=== PATIENT | female | born 1970 | race Caucasian/White ===

== ENCOUNTER 2017-08-04 20:44 | Emergency (ER) | payer BC ==
[~2017-08-04] VITALS: Ht 162.6 cm; Wt 84.0 kg
[~2017-08-04 20:44] MED LIST: ALBU0.5N2 NEB; ALBUAER2 INH; ASPI1TAB83 PO; CETI10TA84 PO; LNX125 PO; MEDR150I INJ; METO25TA3 PO; PANT1TAB48 PO; TPRSR25 PO
[2017-08-04 20:46] VITALS: TEMP 37
[2017-08-04] MEDS ORDERED: SODIUM CHLORIDE 0.9% 1000ML 1,000 ML IV STA ×2 (20:53→20:57)
[2017-08-04 20:56] VITALS: Ht 162.6 cm; Wt 84.0 kg
--- NOTE | 2017-08-04 21:21 | DIAGNOSTIC IMAGING REPORT ---
CHEST ONE VIEW PORTABLE HISTORY: 46 years-old Female EVALUATE WEAKNESS acute weakness with tachycardia COMPARISON: Chest radiograph 01/02/2016 TECHNIQUE: Portable upright AP view of the chest FINDINGS: Cardiomediastinal and hilar silhouettes are within normal limits. No pneumothorax, pleural effusion or focal airspace consolidation. No overt pulmonary edema. The bones are grossly intact. IMPRESSION: No acute cardiopulmonary process. The above report was generated using voice recognition software. It may contain grammatical, syntax or spelling errors. Electronically signed by: Ten Parmar M.D. 08/04/2017 9:20 PM Dictated Date/Time: 08/04/2017 9:19 PM
[2017-08-04 21:32] LABS: INR 0.9 (0.9-1.1); PARTIAL THROMBOPLASTIN RATIO 1.2; PROTHROMBIN TIME (PATIENT) 10.1 SECONDS (9.0-12.0)
--- NOTE | 2017-08-04 21:32 | EMERGENCY ROOM VISIT NOTE ---
History Report prepared by Zeny: Ino Madrid Under the Supervision of: Dr. Olvin aGrza M.D. First contact with patient: 20:52 Chief Complaint: TACHYCARDIA Stated Complaint: TACHYCARDIA FOR 2 HOURS History of Present Illness The patient is a 46 year old female who presents to the Emergency Room with complaints of constant tachycardia for two hours. The patient states that she has been very dehydrated the past two days, and she states she has a history of SVT. She states that she has these episodes when she gets dehydrated. She was last here in December of 2015 for SVT due to being dehydrated, and afterwards she was scheduled for an ablation, and she has been drinking more water than before. She states that she has been light headed with this tachycardia. Pt denies LOC, headache, fevers, chills, diaphoresis, visual changes, neck pain, chest pain, breathing difficulties, nausea, vomiting, abdominal pain, back pain , leg swelling, melena, hematochezia, urinary symptoms, numbness, weakness, lymphadenopathy, rash, or other complaints. Source of History: patient Onset: two hours ago Position: other (heart) Quality: other (tachycardic) Timing: constant Note: Associated symptoms: Dizziness Review of Systems See HPI for pertinent positives and negatives. A total of ten systems were reviewed and were otherwise negative. Past Medical & Surgical Medical Problems: (1) Asthma (2) H/O migraine (3) H/o palpitations (4) H/o PVC's (5) Respiratory failure, acute (6) Tobacco use disorder Surgical Problems: (1) H/O arthroscopic knee surgery (2) H/O arthroscopy of shoulder (3) H/o EGD (4) History of dental surgery (5) S/P Family History Cardiac disorder FATHER Diabetes mellitus PGM AUNT FH: CAD (coronary artery disease) PGF PGM FH: breast cancer PATERNAL AUNT (age late 50s) FH: colon cancer UNCLE (age 65) Hypertension BROTHER HALF BROTHER Social History Smoking Status: Current Every Day Smoker Alcohol Use: occasionally Drug Use: none Marital Status: Housing Status: lives with family Current/Historical Medications Scheduled Aspirin (Aspirin), 81 MG PO QAM Cetirizine (Zyrtec), 10 MG PO QAM Cyanocobalamin (Cyanocobalamin), 1,000 MCG IM MONTHLY Digoxin (Digitek), 0.0625 MG PO QAM Medroxyprogesterone Acetate (C (Medroxyprogesterone Aceta), 150 MG IM Q3 MONTHS Metoprolol Succinate (Metoprolol Succinate ER), 12.5 MG PO QAM Pantoprazole (Pantoprazole Sodium), 40 MG PO QAM Scheduled PRN Albuterol (Ventolin Hfa), 2 PUFFS INH QID PRN for SOB/Wheezing Lorazepam (Lorazepam), 0.5 MG PO Q8 PRN for Palpitations or Anxiety Allergies Coded Allergies: Bupropion (Verified Allergy, Unknown, HIVES, 01/02/16) Iodine (Verified Allergy, Unknown, 01/02/16) Phentermine (Verified Allergy, Unknown, 01/02/16) Scallop (Unverified Allergy, Unknown, NO BLOOD PRESSURE/VOMITING, 01/02/16) NEAR EXPERIENCE. Clarithromycin (Verified Adverse Reaction, Unknown, HEADACHE, 11/13/15) Physical Exam Vital Signs Date Time Temp Pulse Resp B/P (MAP) Pulse Ox O2 Delivery O2 Flow Rate FiO2 08/04/17 23:13 81 16 100/66 95 Room Air 08/04/17 22:13 96 20 86/60 95 Room Air 08/04/17 21:33 95 Room Air 08/04/17 21:32 96 Room Air 08/04/17 21:27 100 18 93/65 96 Room Air 08/04/17 20:57 110 08/04/17 20:53 168 08/04/17 20:48 98 Room Air 08/04/17 20:46 37.0 173 18 99/58 96 Room Air Physical Exam GENERAL: Awake, alert, well-appearing, in no distress HENT: Normocephalic, atraumatic. Oropharynx unremarkable. EYES: Normal conjunctiva. Sclera non-icteric. NECK: Supple. No nuchal rigidity. FROM. No JVD. RESPIRATORY: Clear to auscultation. CARDIAC:Tachycardic rate, normal rhythm. Extremities warm and well perfused. Pulses equal. ABDOMEN: Soft, non-distended. No tenderness to palpation. No rebound or guarding. No masses. RECTAL: Deferred. MUSCULOSKELETAL: Chest examination reveals no tenderness. The back is symmetrical on inspection without obvious abnormality. There is no CVA tenderness to palpation. No joint edema. LOWER EXTREMITIES: Calves are equal size bilaterally and non-tender. No edema. No discoloration. NEURO: Normal sensorium. No sensory or motor deficits noted. SKIN: No rash or jaundice noted. Medical Decision & Procedures ER Provider Diagnostic Interpretation: Radiology results as stated below per my review and radiologist interpretation: CHEST ONE VIEW PORTABLE HISTORY: 46 years-old Female EVALUATE WEAKNESS acute weakness with tachycardia COMPARISON: Chest radiograph 01/02/2016 TECHNIQUE: Portable upright AP view of the chest FINDINGS: Cardiomediastinal and hilar silhouettes are within normal limits. No pneumothorax, pleural effusion or focal airspace consolidation. No overt pulmonary edema. The bones are grossly intact. IMPRESSION: No acute cardiopulmonary process. The above report was generated using voice recognition software. It may contain grammatical, syntax or spelling errors. Electronically signed by: Ten Parmar M.D. 08/04/2017 9:20 PM Dictated Date/Time: 08/04/2017 9:19 PM Laboratory Results 08/04/17 21:00 Red Blood Count 5.27, Mean Corpuscular Volume 89.4, Mean Corpuscular Hemoglobin 32.4, Mean Corpuscular Hemoglobin Concent 36.3, Mean Platelet Volume 11.3, Neutrophils (%) (Auto) 52.4, Lymphocytes (%) (Auto) 40.3, Monocytes (%) (Auto) 5.4, Eosinophils (%) (Auto) 1.3, Basophils (%) (Auto) 0.4, Neutrophils # (Auto) 5.92, Lymphocytes # (Auto) 4.56, Monocytes # (Auto) 0.61, Eosinophils # (Auto) 0.15, Basophils # (Auto) 0.05 08/04/17 21:00 Test 08/04/17 21:00 08/04/17 22:00 White Blood Count 11.31 K/uL (4.8-10.8) Red Blood Count 5.27 M/uL (4.2-5.4) Hemoglobin 17.1 g/dL (12.0-16.0) Hematocrit 47.1 % (37-47) Mean Corpuscular Volume 89.4 fL (80-100) Mean Corpuscular Hemoglobin 32.4 pg (25-34) Mean Corpuscular Hemoglobin Concent 36.3 g/dl (32-36) Platelet Count 204 K/uL (130-400) Mean Platelet Volume 11.3 fL (7.4-10.4) Neutrophils (%) (Auto) 52.4 % Lymphocytes (%) (Auto) 40.3 % Monocytes (%) (Auto) 5.4 % Eosinophils (%) (Auto) 1.3 % Basophils (%) (Auto) 0.4 % Neutrophils # (Auto) 5.92 K/uL (1.4-6.5) Lymphocytes # (Auto) 4.56 K/uL (1.2-3.4) Monocytes # (Auto) 0.61 K/uL (0.11-0.59) Eosinophils # (Auto) 0.15 K/uL (0-0.5) Basophils # (Auto) 0.05 K/uL (0-0.2) RDW Standard Deviation 46.4 fL (36.4-46.3) RDW Coefficient of Variation 14.1 % (11.5-14.5) Immature Granulocyte % (Auto) 0.2 % Immature Granulocyte # (Auto) 0.02 K/uL (0.00-0.02) Prothrombin Time 10.1 SECONDS (9.0-12.0) Prothromb Time International Ratio 0.9 (0.9-1.1) Activated Partial Thromboplast Time 30.1 SECONDS (21.0-31.0) Partial Thromboplastin Ratio 1.2 Anion Gap 9.0 mmol/L (3-11) Est Creatinine Clear Calc Drug Dose 82.0 ml/min Estimated GFR () 89.5 Estimated GFR (Non- 77.2 BUN/Creatinine Ratio 7.9 (10-20) Calcium Level 8.3 mg/dl (8.5-10.1) Magnesium Level 2.0 mg/dl (1.8-2.4) Total Bilirubin 0.3 mg/dl (0.2-1) Direct Bilirubin < 0.1 mg/dl (0-0.2) Aspartate Amino Transf (AST/SGOT) 22 U/L (15-37) Alanine Aminotransferase (ALT/SGPT) 26 U/L (12-78) Alkaline Phosphatase 68 U/L (45-117) Total Creatine Kinase 114 U/L (26-192) Creatine Kinase MB 0.9 ng/ml (0.5-3.6) Creatine Kinase MB Ratio 0.8 (0-3.0) Troponin I < 0.015 ng/ml (0-0.045) Total Protein 7.5 gm/dl (6.4-8.2) Albumin 3.7 gm/dl (3.4-5.0) Thyroid Stimulating Hormone (TSH) 8.930 uIu/ml (0.300-4.500) Human Chorionic Gonadotropin, Qual NEG (NEG) Urine Color YELLOW Urine Appearance CLEAR (CLEAR) Urine pH 5.5 (4.5-7.5) Urine Specific [place] 1.010 (1.000-1.030) Urine Protein NEG (NEG) Urine Glucose (UA) NEG (NEG) Urine Ketones NEG (NEG) Urine Occult Blood 1+ (NEG) Urine Nitrite NEG (NEG) Urine Bilirubin NEG (NEG) Urine Urobilinogen NEG (NEG) Urine Leukocyte Esterase NEG (NEG) Urine WBC (Auto) /hpf (0-5) Urine RBC (Auto) /hpf (0-4) Urine Hyaline Casts (Auto) /lpf (0-5) Urine Epithelial Cells (Auto) /lpf (0-5) Urine Bacteria (Auto) (NEG) Urine RBC 5-10 /hpf (0-4) Urine WBC 0 /hpf (0-5) Urine Epithelial Cells 10-20 /lpf (0-5) Urine Bacteria NEG (NEG) Laboratory results reviewed by me Medications Administered Medications (Trade) Dose Ordered Sig/Sean Route Start Time Stop Time Status Last Admin Dose Admin Sodium Chloride 1,000 ml @ 125 mls/hr Q8H STAT IV 08/04/17 20:53 08/05/17 00:21 DC 08/04/17 20:53 125 MLS/HR Sodium Chloride 1,000 ml @ 999 mls/hr Q1H1M STAT IV 08/04/17 20:57 08/04/17 21:57 DC 08/04/17 21:09 999 MLS/HR ECG Indication: tachycardia Rate (beats per minute): 167 Rhythm: SVT Findings: nonspecific-ST abn, RBBB (incomplete), other (Premature Supraventricular Contractions) Change: Repeat EKG after the change in rhythm: Tachycardia at 105. Non-specific ST abnormalities and PVC ED Course 2051: The patient was evaluated in room B1. A complete history and physical exam was performed. 2052: Sodium Chloride 1000 ml @ 125 mls/hr IV 2056: Sodium Chloride 1000 ml @ 999 mls/hr IV 2321: I reevaluated the patient, and she is feeling well, and she is going to follow up with cardiology. Discussed results and discharge instructions: She verbalized understanding and agreement. The patient is ready for discharge. Medical Decision Triage Nursing notes reviewed. The patient's presentation and history were concerning for palpitations. Etiologies such as ectopy, cardiac dysrhythmia, electrolyte abnormality, thyroid dysfunction, pulmonary embolism, infection, gastrointestinal, as well as others were entertained. The patient was evaluated. She was found to be in a super ventricular tachycardia. She was taken emergently to the resuscitation room. Cardiac monitoring and ECG revealed a supraventricular tachycardia. She has a history of this. An IV was established. The patient then felt fluttering in her chest and the SVT broke to sinus rhythm. She felt much better. Blood work was obtained. Electrolytes were checked. She was hydrated with 1 L normal saline. The patient's blood work was unremarkable. Potassium is 1/10 of a point low. I discussed medications or increasing the potassium patient's diet and she chose the latter. On monitor she had no recurrence of her SVT. She never had any significant chest pain or ischemic ECG changes. She has had this happen to her before. I discussed conservative management. The patient will follow-up with her kier operator this week. I gave my usual and customary discussion regarding this issue. By the evaluation outlined above other emergent etiologies such as those listed in the differential, as well as others, were deemed relatively unlikely. The patient was educated about the findings as listed above. All questions were answered and the patient was pleased with the treatment. Return instructions were outlined and the patient was discharged in stable condition. The patient was referred to cardiology for follow-up for a recheck of the current condition. Medication Reconcilliation Current Medication List: was personally reviewed by me Blood Pressure Screening Patient's blood pressure: Low blood pressure Referred to kier operator Impression Primary Impression: SVT (supraventricular tachycardia) Scribe Attestation The scribe's documentation has been prepared under my direction and personally reviewed by me in its entirety. I confirm that the note above accurately reflects all work, treatment, procedures, and medical decision making performed by me. Departure Information Dispostion Home / Self-Care Referrals Olvin Cochran III, M.D. (PCP) Forms HOME CARE DOCUMENTATION FORM, IMPORTANT VISIT INFORMATION, WORK / SCHOOL INSTRUCTIONS Patient Instructions My [facility], Understanding Supraventricular Tachycardia SVT Additional Instructions Rest and drink plenty of fluids as tolerated. Continue current medications. Resume normal activities once your symptoms resolve. Eat a heart healthy, low fat, low cholesterol diet. Return to the ER immediately for passing out, chest pain, abdominal pain, vomiting, fevers, difficulty breathing, worsening of your condition, or as needed. Follow up with kier operator this week for a recheck of your current condition.
[2017-08-04 21:33] VITALS: O2SAT 95
[2017-08-04 21:45] LABS: PREG INTERNAL NEGATIVE QC NEG CLEAR BACKGROUND; PREG INTERNAL POSITIVE QC POS CONTROL LINE
[2017-08-04 21:51] LABS: BASO % 0.4 %; BASO ABS # 0.05 K/uL (0-0.2); COMPLETE YES; EOS % 1.3 %; HEMATOCRIT 47.1 % (37-47); IG% 0.2 %; LYMPH % 40.3 %; LYMPH ABS # 4.56 K/uL (1.2-3.4); MEAN CELL VOLUME 89.4 fL (80-100); MEAN CORPUSCULAR HEMOGLOBIN 32.4 pg (25-34); MEAN CORPUSCULAR HGB CONC 36.3 g/dl (32-36); MEAN PLATELET VOLUME 11.3 fL (7.4-10.4); MONO % 5.4 %; NEUT % 52.4 %; PLATELET COUNT 204 K/uL (130-400); RED BLOOD COUNT 5.27 M/uL (4.2-5.4); WHITE BLOOD COUNT 11.31 K/uL (4.8-10.8)
[2017-08-04 22:01] LABS: ALKALINE PHOSPHATASE 68 U/L (45-117); ALT/SGPT 26 U/L (12-78); BLOOD UREA NITROGEN 7 mg/dl (7-18); BUN/CREATININE RATIO 7.9 (10-20); CALCIUM 8.3 mg/dl (8.5-10.1); CHLORIDE 105 mmol/L (98-107); CREATININE 0.89 mg/dl (0.60-1.20)
[2017-08-04] MEDS ORDERED: TPRSR/25 PO (22:01)
[2017-08-04] MEDS ORDERED: MEDR150I19 IM (22:01)
[2017-08-04] MEDS ORDERED: DIGO30TA PO (22:01)
[2017-08-04] MEDS ORDERED: CYNI1000 IM (22:01)
[2017-08-04] MEDS ORDERED: ATV5X PO (22:01)
[2017-08-04] MEDS ORDERED: PRT/40 PO (22:01)
[2017-08-04 22:02] LABS: CARBON DIOXIDE 27 mmol/L (21-32); CKMB/CK RATIO 0.8 (0-3.0); GLUCOSE 115 mg/dl (70-99); POTASSIUM 3.4 mmol/L (3.5-5.1); SODIUM 140 mmol/L (136-145)
[2017-08-04] MEDS ORDERED: PRVHFAIN INH (22:05)
[2017-08-04 22:10] LABS: AST/SGOT 22 U/L (15-37)
[2017-08-04 22:16] LABS: URINE BILIRUBIN NEG (NEG); URINE COLOR YELLOW; URINE NITRITE NEG (NEG); URINE PH 5.5 (4.5-7.5); UROBILINOGEN NEG (NEG)
[2017-08-04 22:22] LABS: MANUAL MICROSCOPIC REQUIRED? YES; REVIEW REQ? NO; URINE APPEARANCE CLEAR (CLEAR)
[2017-08-04 22:32] LABS: URINE BACTERIA NEG (NEG); URINE WBC 0 /hpf (0-5)
[2017-08-04 23:13] VITALS: BP 100/66; PULSE 81; O2SAT 95
== END 2017-08-04 23:41 | disposition home or self-care (01) ==
LOC: C.EDB 20:45
DX: I47.1 Supraventricular tachycardia (principal); R42 Dizziness and giddiness; F17.210 Nicotine dependence, cigarettes, uncomplicated

== ENCOUNTER 2017-08-10 19:37 | Emergency (ER) | payer BC ==
[~2017-08-10] VITALS: Ht 162.6 cm; Wt 85.2 kg
[~2017-08-10 19:37] MED LIST changes: -ALBU0.5N2 NEB; -ALBUAER2 INH; +ATV5X PO; +CYNI1000 IM; +DIGO30TA PO; -LNX125 PO; -MEDR150I INJ; +MEDR150I19 IM; -METO25TA3 PO; -PANT1TAB48 PO; +PRT/40 PO; +PRVHFAIN INH; +TPRSR/25 PO; -TPRSR25 PO
[2017-08-10 19:50] VITALS: TEMP 37; Ht 162.6 cm; Wt 85.2 kg
[2017-08-10] MEDS ORDERED: ADENOSINE IV SOLN 3 MG/ML 2 ML VIAL ONE (20:00)
[2017-08-10] MEDS ORDERED: ADENOSINE IV SOLN 3 MG/ML 2 ML VIAL IV STA (20:19)
[2017-08-10] MEDS ORDERED: SODIUM CHLORIDE 0.9% 1000ML 2,000 ML IV STA (20:19)
--- NOTE | 2017-08-10 20:27 | DIAGNOSTIC IMAGING REPORT ---
SINGLE VIEW CHEST CLINICAL HISTORY: Dyspnea. FINDINGS: An AP, portable, upright chest radiograph is compared to study dated 08/04/2017. The cardiomediastinal silhouette is unremarkable. The lungs and pleural spaces are clear. No pneumothorax is seen. The bony thorax is grossly intact. IMPRESSION: No active disease in the chest. Electronically signed by: Willem Hamilton M.D. 08/10/2017 8:26 PM Dictated Date/Time: 08/10/2017 8:26 PM
[2017-08-10 20:43] LABS: HEMATOCRIT 46.3 % (37-47); MEAN CELL VOLUME 89.9 fL (80-100); MEAN CORPUSCULAR HEMOGLOBIN 31.7 pg (25-34); MEAN CORPUSCULAR HGB CONC 35.2 g/dl (32-36); MEAN PLATELET VOLUME 11.5 fL (7.4-10.4); PLATELET COUNT 232 K/uL (130-400); RED BLOOD COUNT 5.15 M/uL (4.2-5.4); WHITE BLOOD COUNT 13.78 K/uL (4.8-10.8)
[2017-08-10 20:51] LABS: BLOOD UREA NITROGEN 10 mg/dl (7-18); BUN/CREATININE RATIO 10.6 (10-20); CALCIUM 8.9 mg/dl (8.5-10.1); CARBON DIOXIDE 29 mmol/L (21-32); CHLORIDE 104 mmol/L (98-107); GLUCOSE 81 mg/dl (70-99); POTASSIUM 3.2 mmol/L (3.5-5.1); SODIUM 138 mmol/L (136-145)
[2017-08-10 21:41] LABS: BASO % 0.4 %; BASO ABS # 0.05 K/uL (0-0.2); COMPLETE YES; EOS % 1.5 %; IG% 0.3 %; LYMPH % 37.4 %; LYMPH ABS # 5.16 K/uL (1.2-3.4); MONO % 7.2 %; NEUT % 53.2 %
[2017-08-10 22:06] VITALS: BP 99/66; PULSE 85; O2SAT 97
--- NOTE | 2017-08-11 00:31 | EMERGENCY ROOM VISIT NOTE ---
History Report prepared by Zeny: Robert Gómez Under the Supervision of: Dr. Gonzalo Hebert D.O. First contact with patient: 19:55 Chief Complaint: IRREGULAR HEARTBEAT Stated Complaint: SVT History of Present Illness The patient is a 46 year old female who presents to the Emergency Room with complaints of a constant irregular heartbeat beginning three hours ago. The patient states she has a history of SVT and PVCs. She reports she was supposed to have an ablation, but she cancelled it because she was dehydrated. The patient notes her symptoms are similar to when she had her SVT. She states she can feel the PVCs. The patient reports she has had around 40 episodes where she was able to break it on her own. She notes she typically drinks water and bares down and coughs. The patient states she drank a few sips of her daughter's chi latte, and she thinks this is the cause of her symptoms. She reports this is only the third time where she was not able to control her symptoms. The patient notes she took .5mg of Ativan in hopes this would help, but it didn't. She states her most recent episode was 6 days ago, and it was caused because she was dehydrated. She notes she has a history of congenital bicuspid aortic valve. The patient reports she is currently experiencing mild chest pain and shortness of breath. She denies a cough and runny nose. The patient also denies a history of: atrial fibrillation, atrial flutter, and blood clots. She notes that she tries very hard to avoid trigger foods and beverages. After the SVT broke, the patient was still short of breath, and her chest pain was gone. Source of History: patient Onset: 3 hours ago Position: other (global) Quality: other (irregular heartbeat) Timing: constant Associated Symptoms: + chest pain, + SOB, No cough Note: Denies: runny nose Review of Systems See HPI for pertinent positives & negatives. A total of 10 systems reviewed and were otherwise negative. Past Medical & Surgical Medical Problems: (1) Asthma (2) H/O migraine (3) H/o palpitations (4) H/o PVC's (5) Respiratory failure, acute (6) Tobacco use disorder Surgical Problems: (1) H/O arthroscopic knee surgery (2) H/O arthroscopy of shoulder (3) H/o EGD (4) History of dental surgery (5) S/P Family History Cardiac disorder FATHER Diabetes mellitus PGM AUNT FH: CAD (coronary artery disease) PGF PGM FH: breast cancer PATERNAL AUNT (age late 50s) FH: colon cancer UNCLE (age 65) Hypertension BROTHER HALF BROTHER Social History Smoking Status: Current Every Day Smoker Alcohol Use: occasionally Drug Use: none Marital Status: Housing Status: lives with family Current/Historical Medications Scheduled Aspirin (Aspirin), 81 MG PO QAM Cetirizine (Zyrtec), 10 MG PO QAM Cyanocobalamin (Cyanocobalamin), 1,000 MCG IM MONTHLY Digoxin (Digitek), 0.0625 MG PO QAM Medroxyprogesterone Acetate (C (Medroxyprogesterone Aceta), 150 MG IM Q3 MONTHS Metoprolol Succinate (Metoprolol Succinate ER), 12.5 MG PO QAM Pantoprazole (Pantoprazole Sodium), 40 MG PO QAM Scheduled PRN Albuterol (Ventolin Hfa), 2 PUFFS INH QID PRN for SOB/Wheezing Lorazepam (Lorazepam), 0.5 MG PO Q8 PRN for Palpitations or Anxiety Allergies Coded Allergies: Bupropion (Verified Allergy, Unknown, HIVES, 08/10/17) Iodine (Verified Allergy, Unknown, 08/10/17) Phentermine (Verified Allergy, Unknown, 08/10/17) Scallop (Unverified Allergy, Unknown, NO BLOOD PRESSURE/VOMITING, 08/10/17 ) NEAR EXPERIENCE. Clarithromycin (Verified Adverse Reaction, Unknown, HEADACHE, 11/13/15) Physical Exam Vital Signs Date Time Temp Pulse Resp B/P (MAP) Pulse Ox O2 Delivery O2 Flow Rate FiO2 08/10/17 22:06 85 20 99/66 97 Room Air 08/10/17 20:42 90 20 101/67 97 Room Air 08/10/17 20:32 95 08/10/17 20:15 99 Room Air 08/10/17 19:50 37.0 88 18 100/73 99 Room Air Physical Exam GENERAL: Sitting up in bed, alert, ill appearing, well nourished, mild distress , non-toxic EYE EXAM: normal conjunctiva, PERRL and EOM's grossly intact OROPHARYNX: no exudate, no erythema, lips, buccal mucosa, and tongue normal and mucous membranes are moist NECK: supple, no nuchal rigidity, no adenopathy, non-tender LUNGS: Clear to auscultation. Normal chest wall mechanics HEART: Tachycardic rate, regular rhythm, no murmurs, S1 normal and S2 normal ABDOMEN: abdomen soft, non-tender, normo-active bowel sounds, no masses, no rebound or guarding. BACK: Back is symmetrical on inspection and there is no deformity, no midline tenderness, no CVA tenderness. SKIN: no rashes and no bruising UPPER EXTREMITIES: upper extremities are grossly normal. LOWER EXTREMITIES: No pitting edema. Calves are equal bilaterally. NEURO EXAM: Normal sensorium, cranial nerves II-XII grossly intact, normal speech, no gross weakness of arms, no gross weakness of legs. Medical Decision & Procedures ER Provider Diagnostic Interpretation: Radiology results as stated below per my review and the radiologist's interpretation: SINGLE VIEW CHEST CLINICAL HISTORY: Dyspnea. FINDINGS: An AP, portable, upright chest radiograph is compared to study dated 08/04/2017. The cardiomediastinal silhouette is unremarkable. The lungs and pleural spaces are clear. No pneumothorax is seen. The bony thorax is grossly intact. IMPRESSION: No active disease in the chest. Electronically signed by: Willem Hamilton M.D. 08/10/2017 8:26 PM Dictated Date/Time: 08/10/2017 8:26 PM Laboratory Results 08/10/17 20:00 Red Blood Count 5.15, Mean Corpuscular Volume 89.9, Mean Corpuscular Hemoglobin 31.7, Mean Corpuscular Hemoglobin Concent 35.2, Mean Platelet Volume 11.5, Neutrophils (%) (Auto) 53.2, Lymphocytes (%) (Auto) 37.4, Monocytes (%) (Auto) 7.2, Eosinophils (%) (Auto) 1.5, Basophils (%) (Auto) 0.4, Neutrophils # (Auto) 7.33, Lymphocytes # (Auto) 5.16, Monocytes # (Auto) 0.99, Eosinophils # (Auto) 0.21, Basophils # (Auto) 0.05 08/10/17 20:00 Test 08/10/17 20:00 08/10/17 21:55 White Blood Count 13.78 K/uL (4.8-10.8) Red Blood Count 5.15 M/uL (4.2-5.4) Hemoglobin 16.3 g/dL (12.0-16.0) Hematocrit 46.3 % (37-47) Mean Corpuscular Volume 89.9 fL (80-100) Mean Corpuscular Hemoglobin 31.7 pg (25-34) Mean Corpuscular Hemoglobin Concent 35.2 g/dl (32-36) Platelet Count 232 K/uL (130-400) Mean Platelet Volume 11.5 fL (7.4-10.4) Neutrophils (%) (Auto) 53.2 % Lymphocytes (%) (Auto) 37.4 % Monocytes (%) (Auto) 7.2 % Eosinophils (%) (Auto) 1.5 % Basophils (%) (Auto) 0.4 % Neutrophils # (Auto) 7.33 K/uL (1.4-6.5) Lymphocytes # (Auto) 5.16 K/uL (1.2-3.4) Monocytes # (Auto) 0.99 K/uL (0.11-0.59) Eosinophils # (Auto) 0.21 K/uL (0-0.5) Basophils # (Auto) 0.05 K/uL (0-0.2) RDW Standard Deviation 45.8 fL (36.4-46.3) RDW Coefficient of Variation 13.8 % (11.5-14.5) Immature Granulocyte % (Auto) 0.3 % Immature Granulocyte # (Auto) 0.04 K/uL (0.00-0.02) Red Blood Cell Morphology Unremarkable Anion Gap 5.0 mmol/L (3-11) Est Creatinine Clear Calc Drug Dose 81.6 ml/min Estimated GFR () 88.3 Estimated GFR (Non- 76.1 BUN/Creatinine Ratio 10.6 (10-20) Calcium Level 8.9 mg/dl (8.5-10.1) Troponin I 0.055 ng/ml (0-0.045) Laboratory results per my review. Medications Administered Medications (Trade) Dose Ordered Sig/Sean Route Start Time Stop Time Status Last Admin Dose Admin Adenosine (Adenosine IV) 18 mg NOW STAT IV 08/10/17 20:19 08/10/17 20:20 DC 08/10/17 20:21 18 MG Sodium Chloride 2,000 ml @ 999 mls/hr Q2H1M STAT IV 08/10/17 20:19 08/10/17 22:19 DC 08/10/17 20:23 999 MLS/HR ECG Indication: palpitations Rate (beats per minute): 161 Rhythm: other (Atrial tachycardia) Findings: nonspecific-ST abn (Inferior), other (normal axis) Comparison ECG Date: 08/04/17 Change: no significant change Change: Second EKG from the same visit: Sinus Tachycardia with a rate 106. Normal axis. Non-specific ST change inferior. ED Course ED COURSE: Vital signs were reviewed and showed tachycardia The patients medical record was reviewed The above diagnostic studies were performed and reviewed. ED treatments and interventions as stated above. 1953: The patient was evaluated in room B01. A complete history and physical examination was performed. 2019: Ordered Sodium Chloride 2000 ml @ 999 mls/hr IV, Adenosine 18mg IV. 2053: Upon reevaluation, the patient is back to baseline.I discussed my findings with the patient 2211: I reevaluated the patient, and she would like to go home. She understands and agrees with the treatment plan. 2251: I discussed the patient's case with Dr. Santa, [facility]. He states the patient likely has type two demand ischemia, and she needs to be notified. 2254: I contacted Christi Grullon's mother. She will try to contact the patient. 2255: I was able to contact Christi Grullon. I explained to her how she needs to return to the ED due to her elevated troponin level. 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 She will call Dr. Connor tomorrow morning for follow up. Based on the patients age, coexisting illnesses, exam and lab findings the decision to treat as an outpatient was made. The patient remained stable while under my care. The patient appeared well at the time of discharge. Medical Decision Differential diagnoses includes but is not limited to pneumonia, bronchitis, COPD/Asthma exacerbation, pneumothorax, pulmonary embolism, congestive heart failure, acute coronary syndrome. Patient is a 46-year-old female who presents to ER for palpitations which has been present for the past 3 hours. She notes she has a history of SVT and has had this about 40 times in her life over the course of the past year. She has only had to come in 3 times as she was unable to break it on her own. She thinks that the inciting issue today was dehydration and caffeine. 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 She was brought into the trauma bay. IVs were established. She was initially given 6 IV of adenosine without success. She was then given 12 IV of adenosine and broke into a sinus tachycardia. She was given 2 L normal saline. Her shortness of breath completely resolved. EKG did show nonspecific ST wave changes. Initial troponin was negative. Patient felt completely back to baseline. She requested to be discharged. I noted EKG changes and recommended a repeat troponin which she was agreeable to. I convinced her to stay but she eventually requested to be discharged. Daughter was present at bedside. 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 Troponin was still pending. Troponin resulted and patient was called at home. I initially contacted her mother to obtain her cell phone. I discussed with cardiology notes that this is likely type II ischemia which I agree however I think it's best at this time to have her admitted. I informed her of this over the phone but patient does not want to return and notes that this is probably related to her rate as she has had this before. Review of her chart confirms this back in December 2015. Chest importance of returning for admission. Patient declined. She understood the risk and benefits. She'll follow up with cardiology hopefully tomorrow. Patient left following informed refusal of care. She is not under the influence and was making cohesive statements and did not appear to be under the influence of any substances. The patient requested to leave. I considered this to be leaving against medical advice. I personally discussed the following with them. They currently had a medical condition of: Elevated troponin and I am concerned that they have ACS or other serious pathology even despite resolution of symptoms. My proposed course of evaluation and treatment and that of any consultants is: admission. Benefits would include: possible diagnosis or excluding of ACS or an alternative serious condition such as PE, which if identified early would lead to appropriate intervention in a timely manner lessing the burden of disability and . Risks of leaving before this had been completed include: misdiagnosis, worsening illness leading up to and including prolonged or permanent disability or . Specific risks pertinent, but not all inclusive, of their current medical condition include but are not limited to: /disability. Despite this they stated they wanted to leave due to working tomorrow and refused further evaluation, treatment, or admission at this time. They appear clinically sober, to be mentating appropriately, free from distracting injury, have controlled pain, appear to have intact insight, judgment, and reason and in my opinion have the capacity to make this decision. Specifically, they were able to verbally state back in a coherent manner their current medical condition /current diagnosis, the proposes course of treatment, and the risks, benefits, and alternatives of treatment versus leaving against medical advice. They understand that they may return to seek medical attention here at whatever time they want. I highly advised them to return to the Emergency Department immediately if they experienced any: Recurrence of the symptoms reconsidered treatment a/o admission, or had any other concerns. This would be without any repercussions. Consults Time Called: 2248 Consulting Physician: [facility] Returned Call: [phone] I discussed the patient's case with [facility]. He states the patient likely has type two demand ischemia, and she needs to be notified. Impression Primary Impression: SVT (supraventricular tachycardia) Additional Impression: Elevated troponin Critical Care I have personally spent 35 minutes of critical care time in the direct management of this patient. This includes bedside care, interpretation of diagnostic studies, and testing, discussion with consultants, patient, and family members, and other required patient management activities. This 35 minutes is in excess of all separately billable procedures. Scribe Attestation The scribe's documentation has been prepared under my direction and personally reviewed by me in its entirety. I confirm that the note above accurately reflects all work, treatment, procedures, and medical decision making performed by me. Departure Information Dispostion Home / Self-Care Referrals No Doctor, Assigned (PCP) Forms HOME CARE DOCUMENTATION FORM, IMPORTANT VISIT INFORMATION Patient Instructions ED Tachycardia Pat PSVT, My [facility] Additional Instructions Please follow up with your primary care doctor with in the next 24 hours. Any worsening of your symptoms, please return to the ED immediately. This includes any fevers greater than 100.4, worsening pain, chest pain, shortness breath, persistent nausea, vomiting, unable to eat or drink, or any other concerning signs or symptoms from your standpoint. Problem Qualifiers
== END 2017-08-10 22:23 | disposition home or self-care (01) ==
LOC: C.EDB 19:38
DX: I47.1 Supraventricular tachycardia (principal); R79.89 Other specified abnormal findings of blood chemistry; J45.909 Unspecified asthma, uncomplicated; Z83.3 Family history of diabetes mellitus; Z82.49 Family history of ischemic heart disease and other diseases of the circulatory system; F17.200 Nicotine dependence, unspecified, uncomplicated; Z79.82 Long term (current) use of aspirin

== ENCOUNTER 2017-08-17 02:42 | Observation (INO) | payer BC ==
[~2017-08-17] VITALS: Ht 162.6 cm; Wt 85.7 kg
[2017-08-17] MEDS ORDERED: ADENOSINE IV SOLN 3 MG/ML 2 ML VIAL ONE (02:55)
[2017-08-17 03:09] LABS: BASO % 0.4 %; BASO ABS # 0.04 K/uL (0-0.2); COMPLETE YES; EOS % 1.2 %; IG% 0.2 %; LYMPH % 31.6 %; MEAN CELL VOLUME 90.4 fL (80-100); MEAN CORPUSCULAR HEMOGLOBIN 30.8 pg (25-34); MEAN PLATELET VOLUME 10.8 fL (7.4-10.4); NEUT % 59.6 %; PLATELET COUNT 175 K/uL (130-400); WHITE BLOOD COUNT 10.12 K/uL (4.8-10.8)
--- NOTE | 2017-08-17 03:14 | EMERGENCY ROOM VISIT NOTE ---
History Report prepared by Zeny: Clarita Funez Under the Supervision of: Dr. Jayant Mejia M.D. First contact with patient: 02:50 Chief Complaint: CHEST PAIN Stated Complaint: SVT-CHEST PAIN History of Present Illness The patient is a 46 year old white female with a past medical history of a congenital bicuspid valve and aortic stenosis who presents to the ED with a cc of chest pain beginning 2 hours prior to arrival. Positive shortness of breath. Negative fevers. The patient denies recent changes in medications. The patient states that she is a smoker. Source of History: patient Onset: 2 hours prior to arrival Position: chest Quality: other (pain) Associated Symptoms: + SOB, No fevers Review of Systems See HPI for pertinent positives and negatives. A total of ten systems were reviewed and were otherwise negative. Past Medical & Surgical Medical Problems: (1) Asthma (2) H/O migraine (3) H/o palpitations (4) H/o PVC's (5) Respiratory failure, acute (6) Tobacco use disorder Surgical Problems: (1) H/O arthroscopic knee surgery (2) H/O arthroscopy of shoulder (3) H/o EGD (4) History of dental surgery (5) S/P Family History Cardiac disorder FATHER Diabetes mellitus PGM AUNT FH: CAD (coronary artery disease) PGF PGM FH: breast cancer PATERNAL AUNT (age late 50s) FH: colon cancer UNCLE (age 65) Hypertension BROTHER HALF BROTHER Social History Smoking Status: Current Every Day Smoker Alcohol Use: occasionally Drug Use: none Marital Status: Housing Status: lives with family Current/Historical Medications Scheduled Aspirin (Aspirin), 81 MG PO QAM Cetirizine (Zyrtec), 10 MG PO QAM Cyanocobalamin (Cyanocobalamin), 1,000 MCG IM MONTHLY Digoxin (Digitek), 0.0625 MG PO QAM Medroxyprogesterone Acetate (C (Medroxyprogesterone Aceta), 150 MG IM Q3 MONTHS Metoprolol Succinate (Metoprolol Succinate ER), 12.5 MG PO QAM Pantoprazole (Pantoprazole Sodium), 40 MG PO QAM Scheduled PRN Albuterol (Ventolin Hfa), 2 PUFFS INH QID PRN for SOB/Wheezing Lorazepam (Lorazepam), 0.5 MG PO Q8 PRN for Palpitations or Anxiety Allergies Coded Allergies: Bupropion (Verified Allergy, Unknown, HIVES, 08/10/17) Iodine (Verified Allergy, Unknown, 08/10/17) Phentermine (Verified Allergy, Unknown, 08/10/17) Scallop (Unverified Allergy, Unknown, NO BLOOD PRESSURE/VOMITING, 08/10/17 ) NEAR EXPERIENCE. Physical Exam Vital Signs Date Time Temp Pulse Resp B/P (MAP) Pulse Ox O2 Delivery O2 Flow Rate FiO2 08/17/17 05:00 95/59 08/17/17 04:57 86 21 94 08/17/17 04:42 87 19 93 08/17/17 04:37 83 19 94 08/17/17 04:30 92/63 08/17/17 04:22 86 20 96 08/17/17 04:15 103/60 08/17/17 04:07 100 18 97 08/17/17 04:00 96/58 08/17/17 03:52 103 14 95 08/17/17 03:45 99/68 08/17/17 03:37 103 21 96 08/17/17 03:30 98/75 08/17/17 03:22 96 14 96 08/17/17 03:21 100 19 96 Room Air 08/17/17 03:17 94 14 99/69 97 08/17/17 03:16 99 08/17/17 03:12 116 26 96 08/17/17 03:07 166 20 98 08/17/17 03:02 173 24 98 Room Air 08/17/17 03:00 109/77 08/17/17 03:00 168 08/17/17 02:59 111/90 08/17/17 02:57 165 18 08/17/17 02:55 08/17/17 02:45 36.9 184 20 102/70 97 Room Air Physical Exam GENERAL: Awake, alert, anxious-appearing, NAD HENT: Normocephalic, atraumatic. EYES: Normal conjunctiva. Sclera non-icteric. NECK: Supple. No nuchal rigidity. FROM. RESPIRATORY: CTAB, no rhonchi, wheezing, crackles CARDIAC: Tachycardic, but regular rhythm, no MRG ABDOMEN: Soft, NTND, BS+ MSK: No chest wall TTP, no LE edema. No calf pain or asymmetry, redness, or warmth NEURO: GCS 15, CN 2-12 intact, moves all 4s on command SKIN: No rash or jaundice noted. Medical Decision & Procedures ER Provider Diagnostic Interpretation: Chest X-Ray: Trachea is midline. Costophrenic angles well demarcated. No air under diaphragm. No consolidation noted. No pleural effusion or pneumothorax. No obvious fracture. Laboratory Results 08/17/17 02:55 Red Blood Count 5.20, Mean Corpuscular Volume 90.4, Mean Corpuscular Hemoglobin 30.8, Mean Corpuscular Hemoglobin Concent 34.0, Mean Platelet Volume 10.8, Neutrophils (%) (Auto) 59.6, Lymphocytes (%) (Auto) 31.6, Monocytes (%) (Auto) 7.0, Eosinophils (%) (Auto) 1.2, Basophils (%) (Auto) 0.4, Neutrophils # (Auto) 6.03, Lymphocytes # (Auto) 3.20, Monocytes # (Auto) 0.71, Eosinophils # (Auto) 0.12, Basophils # (Auto) 0.04 08/17/17 02:55 Test 08/17/17 02:55 08/17/17 04:51 08/17/17 04:59 White Blood Count 10.12 K/uL (4.8-10.8) Red Blood Count 5.20 M/uL (4.2-5.4) Hemoglobin 16.0 g/dL (12.0-16.0) Hematocrit 47.0 % (37-47) Mean Corpuscular Volume 90.4 fL (80-100) Mean Corpuscular Hemoglobin 30.8 pg (25-34) Mean Corpuscular Hemoglobin Concent 34.0 g/dl (32-36) Platelet Count 175 K/uL (130-400) Mean Platelet Volume 10.8 fL (7.4-10.4) Neutrophils (%) (Auto) 59.6 % Lymphocytes (%) (Auto) 31.6 % Monocytes (%) (Auto) 7.0 % Eosinophils (%) (Auto) 1.2 % Basophils (%) (Auto) 0.4 % Neutrophils # (Auto) 6.03 K/uL (1.4-6.5) Lymphocytes # (Auto) 3.20 K/uL (1.2-3.4) Monocytes # (Auto) 0.71 K/uL (0.11-0.59) Eosinophils # (Auto) 0.12 K/uL (0-0.5) Basophils # (Auto) 0.04 K/uL (0-0.2) RDW Standard Deviation 45.0 fL (36.4-46.3) RDW Coefficient of Variation 13.5 % (11.5-14.5) Immature Granulocyte % (Auto) 0.2 % Immature Granulocyte # (Auto) 0.02 K/uL (0.00-0.02) Prothrombin Time 10.4 SECONDS (9.0-12.0) Prothromb Time International Ratio 1.0 (0.9-1.1) Activated Partial Thromboplast Time 30.3 SECONDS (21.0-31.0) Partial Thromboplastin Ratio 1.2 Anion Gap 6.0 mmol/L (3-11) Est Creatinine Clear Calc Drug Dose 92.1 ml/min Estimated GFR () 101.8 Estimated GFR (Non- 87.8 BUN/Creatinine Ratio 8.3 (10-20) Calcium Level 8.6 mg/dl (8.5-10.1) Phosphorus Level 4.2 mg/dl (2.5-4.9) Magnesium Level 1.9 mg/dl (1.8-2.4) Total Bilirubin 0.4 mg/dl (0.2-1) Direct Bilirubin < 0.1 mg/dl (0-0.2) Aspartate Amino Transf (AST/SGOT) 13 U/L (15-37) Alanine Aminotransferase (ALT/SGPT) 18 U/L (12-78) Alkaline Phosphatase 69 U/L (45-117) Troponin I < 0.015 ng/ml (0-0.045) Total Protein 7.3 gm/dl (6.4-8.2) Albumin 3.7 gm/dl (3.4-5.0) Lipase 147 U/L (73-393) Laboratory results reviewed by me Medications Administered Medications (Trade) Dose Ordered Sig/Sean Route Start Time Stop Time Status Last Admin Dose Admin Adenosine (Adenosine Iv) 18 mg STK-MED ONCE .ROUTE 08/17/17 02:55 08/17/17 02:56 DC 08/17/17 03:14 18 MG Potassium Chloride (Klor-Con M10) 50 meq NOW STAT PO 08/17/17 05:14 08/17/17 05:15 DC 08/17/17 06:08 50 MEQ Magnesium Sulfate 1 gm/Prmx 100 ml @ 100 mls/hr NOW STAT IV 08/17/17 05:38 08/17/17 06:37 DC 08/17/17 06:11 100 MLS/HR Lactated Ringer's 1,000 ml @ 75 mls/hr [id number] ONCE IV 08/17/17 05:45 08/17/17 19:04 08/17/17 06:10 75 MLS/HR ECG Indication: chest pain Rate (beats per minute): 165 Rhythm: SVT Findings: other (narrow complex, no STS changes ) Change: repeat ECG: sinus rhythm with PVC's, ectopy, rate of 97, normal intervals, no STS changes ED Course 0255: The patient was evaluated in room B6. A complete history and physical exam was performed. 0440:Discussed the patient's case with Dr. Franco. The patient will be evaluated for further treatment and disposition. 0445: Upon reexamination, the patient was resting. I discussed the test results and treatment plan with her. The patient will be evaluated for further management. Medical Decision The patient is a 46 year old white female with a past medical history of a congenital bicuspid valve and aortic stenosis who presents to the ED with a cc of chest pain beginning 2 hours prior to arrival. Differential diagnosis: Etiologies such as cardiac ischemia, aortic dissection, pulmonary embolism, pneumonia, pneumothorax, musculoskeletal, infections, pericarditis, myocarditis , esophageal rupture, gastrointestinal, as well as others were entertained. Patient was seen and evaluated the bedside. Patient had been complaining of some shortness of breath and chest pain. Patient states she's had prior episodes of SVT. Patient does take digoxin as well as metoprolol. Patient states that she noticed her fast heart rate around 1 this morning. Patient has had some increased stresses at home. Patient denies any alcohol use the patient does still smoke. Patient's heart rate was in the 170s and EKG appeared to be SVT. Vagal maneuvers were attempted but without success. Patient was given 6 of adenosine after that it initially broke but returned to SVT. Patient was given an additional 12 mg of adenosine which point the patient converted to sinus. Patient's chest x-ray unremarkable unremarkable by read. Patient had a negative troponin. TSH was within normal limits. Patient had a normal hemoglobin. White blood cell count was not elevated or low. Given the patient's history of 3 separate visits within the last 2 weeks for the same complaint I did speak with the hospitalists for possible admission to discuss changing her rate control medication, potentially starting an antiarrhythmic, or doing EP study. He agreed with plan of care and the patient was admitted. Medication Reconcilliation Current Medication List: was personally reviewed by me Blood Pressure Screening Patient's blood pressure: Low blood pressure Consults Time Called: 0400 Consulting Physician: Dr. Arana Returned Call: 0440 Discussed the patient's case. The patient will be evaluated for further treatment and disposition. Impression Primary Impression: SVT (supraventricular tachycardia) Additional Impression: Chest pain Critical Care I have personally spent greater than 39 minutes of critical care time in the direct management of this patient. This includes bedside care, interpretation of diagnostic studies, and testing, discussion with consultants, patient, and family members, and other required patient management activities. This 39 minutes is in excess of all separately billable procedures. Scribe Attestation The scribe's documentation has been prepared under my direction and personally reviewed by me in its entirety. I confirm that the note above accurately reflects all work, treatment, procedures, and medical decision making performed by me. Departure Information Dispostion Being Evaluated By Hospitalist Referrals Olvin Cochran III, M.D. (PCP) Patient Instructions My [facility] Problem Qualifiers Additional Impression: Chest pain Chest pain type: unspecified Qualified Codes: R07.9 - Chest pain, unspecified
[2017-08-17 03:33] LABS: ALT/SGPT 18 U/L (12-78); AST/SGOT 13 U/L (15-37); BLOOD UREA NITROGEN 7 mg/dl (7-18); BUN/CREATININE RATIO 8.3 (10-20); CALCIUM 8.6 mg/dl (8.5-10.1); CARBON DIOXIDE 27 mmol/L (21-32); CHLORIDE 107 mmol/L (98-107); GLUCOSE 131 mg/dl (70-99); MAGNESIUM 1.9 mg/dl (1.8-2.4); POTASSIUM 3.5 mmol/L (3.5-5.1); SODIUM 140 mmol/L (136-145)
[2017-08-17 03:36] LABS: ALKALINE PHOSPHATASE 69 U/L (45-117); PHOSPHORUS 4.2 mg/dl (2.5-4.9)
[2017-08-17 03:38] LABS: PARTIAL THROMBOPLASTIN RATIO 1.2; PROTHROMBIN TIME (PATIENT) 10.4 SECONDS (9.0-12.0)
[2017-08-17] MEDS ORDERED: POTASSIUM CHLORIDE 10 MEQ TABCR PO STA (05:14)
[2017-08-17] MEDS ORDERED: MAGNESIUM SULFATE 1GM / D5W 1 GM in PREMIXED IN D5W 100 ML IV STA (05:38)
[2017-08-17] MEDS ORDERED: LACTATED RINGER'S 1000ML 1,000 ML IV ONE (05:45)
[2017-08-17] MEDS ORDERED: LORAZEPAM 0.5 MG TAB PO PRN (05:45)
[2017-08-17] MEDS ORDERED: NITROGLYCERIN 0.4 MG SL PER TAB CHARGE SL PRN (05:45)
[2017-08-17] MEDS ORDERED: ONDANSETRON INJ 2 MG/ML 2 ML VIAL IV PRN (05:45)
[2017-08-17] MEDS ORDERED: TRAMADOL HCL 50 MG TAB PO PRN (05:45)
[2017-08-17] MEDS ORDERED: ACETAMINOPHEN 325 MG TAB PO PRN (05:45)
[2017-08-17] MEDS ORDERED: MoRPHine SULFATE 2 MG/ML CARP IV PRN (05:45)
[2017-08-17] MEDS ORDERED: IV FLUIDS COMPLETED PRN (06:00)
[2017-08-17 07:35] VITALS: BP 102/65; PULSE 65; TEMP 37.1; O2SAT 97; Ht 162.6 cm; Wt 85.7 kg
--- NOTE | 2017-08-17 07:37 | DIAGNOSTIC IMAGING REPORT ---
SINGLE VIEW CHEST CLINICAL HISTORY: Atypical chest pain. FINDINGS: An AP, portable, upright chest radiograph is compared to study dated 08/10/2017. The examination is degraded by portable technique and patient rotation. The cardiomediastinal silhouette is unremarkable. The lungs appear hyperinflated, likely due to good inspiratory result. The lungs and pleural spaces are clear. No pneumothorax is seen. The bony thorax is grossly intact. IMPRESSION: No active disease in the chest. Electronically signed by: Willem Hamilton M.D. 08/17/2017 7:35 AM Dictated Date/Time: 08/17/2017 7:35 AM
--- NOTE | 2017-08-17 07:56 | HISTORY & PHYSICAL EXAMINATION ---
DATE OF ADMISSION: 08/17/2017 PRIMARY CARE DOCTOR: Dr. Cochran. CHIEF COMPLAINT: SVT. HISTORY OF PRESENT ILLNESS: History obtained from patient and records. Medical history significant for asthma, ongoing tobacco abuse, PSVT, bicuspid aortic valve. Recent confinement December 2015 for SVT. Patient [place] [facility] last April 2017 for drug refractory SVT. She was felt to be a good candidate for catheter ablation. Scheduled 2 months ago. Patient cancelled procedure because she had been well. Patient also had some concerns about sedation. About 2 weeks ago, patient was seen at the Emergency Room for SVT related to possible dehydration. SVT spontaneously broke. Compliant with home medications. Admits to some stress at home more than usual. Patient returned to the Emergency Room a week later for SVT. Resolved after administration of adenosine at the Emergency Room. Patient did not want to stay for admission. As per patient, since last ER visit she has had some chest soreness like somebody kicked her on the chest. No shortness of breath. She had a followup with her [facility] [place] attendant a few days ago. Yesterday she used albuterol rescue inhaler 2 times secondary to some respiratory tract infection. This morning, few hours ago patient woke up to go to the bathroom. Upon returning to bed she felt palpitations. No unusual chest pain or shortness of breath. At the Emergency Room, she was noted to be in SV. Cardiac rate 180s. Resolved after administration of IV adenosine. MEDICAL HISTORY: As above. A 2D echo from January 2017 showed congenital bicuspid aortic valve, moderate calcific aortic valve, moderately reduced aortic valve opening. No significant aortic regurgitation. LVH. SURGERIES: section, dental surgery, shoulder surgery and knee surgery. HOME MEDICATIONS: Include digoxin, metoprolol, aspirin, Protonix. ALLERGIES: ALBUTEROL, LORAZEPAM, ALLERGIC TO BUPROPION, SCALLOPS, CLARITHROMYCIN. FAMILY HISTORY: Family history of heart disease. PERSONAL AND SOCIAL HISTORY: Half pack daily. 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 REVIEW OF SYSTEMS: As per HPI, all other ROS negative. PHYSICAL EXAMINATION: VITAL SIGNS: Blood pressure was noted to be 100/70, pulse rate 184, later 96, RR 14, temperature 36.9, sats 98 on room air. GENERAL: Noted to be obese, anxious, no respiratory distress. SKIN: Normal color. Warm. HEAD, EYES, EARS, NOSE, AND THROAT: [place] palpebral conjunctivae. No ptosis. Dry oral mucosa. NECK: Short neck. No tenderness. LUNGS: Decreased breath sounds. No anterior chest wall tenderness HEART: Regular rate and rhythm. Systolic murmur. ABDOMEN: Soft, nontender. EXTREMITIES: No edema. No gross deformities. No tenderness. NEUROLOGIC EXAMINATION: No gross focality, coherent. LABORATORY DATA: Hemoglobin was noted to be 16, white cells 10, platelets 145. Sodium 140, potassium 3.5, chloride 102, BUN 7, creatinine 0.8, glucose was noted to be 131, Mg 1.9. Chest x-ray as per my interpretation atelectasis, straightened heart border. EKG as per my interpretation rate 165, SVT, normal axis, incomplete right bundle branch block, upsloping ST depression on the inferior leads. ASSESSMENT AND PLAN: 1. Recurrent supraventricular tachycardia history of drug refractory supraventricular tachycardia as per outpx EPS evaluation resolved after IV adenosine administration in the ER 2. hx bicuspid aortic valve stenosis 3. Ongoing tobacco abuse. Observation PCU supplement electrolytes facilitate beta armani, digoxin. Follow up Cardiology eval. RE recurrent SVT (Patient know to Dr. Connor.) Nicotine patch. DVT prophylaxis, Lovenox subQ. FULL CODE. MTDD
[2017-08-17] MEDS ORDERED: ENOXAPARIN 40 MG/0.4 ML SYR SC SCH (08:00)
[2017-08-17 08:29] VITALS: BP 96/68; PULSE 48; TEMP 36.9; O2SAT 93
[2017-08-17] MEDS ORDERED: METOPROLOL SUCC 25MG EXT REL TAB PO SCH (09:00)
[2017-08-17] MEDS ORDERED: DIGOXIN 0.125 MG TAB PO SCH (09:00)
[2017-08-17] MEDS ORDERED: ASPIRIN 81 MG ECTAB PO SCH (09:00)
[2017-08-17] MEDS ORDERED: PANTOprazole SOD 40 MG TAB PO SCH (09:00)
[2017-08-17] MEDS ORDERED: NICOTINE 14 MG/24 HR TDSY TD SCH (09:00)
--- NOTE | 2017-08-17 09:46 | Cardiology Consultation ---
Cardiology Consultation Date of Consultation: Aug 17, 2017 History of Present Illness Patient is a 46 year old female seen in cardiology consultation per the request of Dr. Rocha for the evaluation of supraventricular tachycardia. The patient is well known to the undersigned. I recently seen her as an outpatient 3 days ago on 08/14/17. She has a long-standing history of symptomatic PVCs, paroxysmal supraventricular tachycardia, and bicuspid aortic valve with moderate aortic valve stenosis. Treatment with AV chitra blockers and antiarrhythmic medications has been limited due to the patient's resting sinus bradycardia at baseline. The patient presented overnight last night. She was getting ready to go to bed , and she laid down at 11:00 and had abrupt onset of tachycardia. On arrival, EKG and telemetry confirmed the presence of supraventricular tachycardia with rates between 160-[address] segment depression was noted. The patient had symptoms of heart racing, without chest pressure or shortness of breath. She received a dose of 6 mg of IV adenosine which temporarily broke the tachycardia, but it returned, and she received another dose this time of 12 mg of adenosine with successful conversion to sinus rhythm. On telemetry overnight last night, she has had no recurrence of the supraventricular tachycardia, frequent PVCs are noted including ventricular couplets. The patient feels as though she is coming down with a respiratory tract infection she has cough, and runny nose. She sinus tenderness. She had other recent supraventricular tachycardia episodes on 08/04/17, this terminated before she required treatment. She was seen in the emergency department was released. On 08/10/17, she received 3 doses of adenosine before the tachycardia converted. Past Medical/Surgical History Problem List: Medical Problems: (1) Asthma (2) H/O migraine (3) H/o palpitations (4) H/o PVC's (5) Respiratory failure, acute (6) Tobacco use disorder Surgical Problems: (1) H/O arthroscopic knee surgery (2) H/O arthroscopy of shoulder (3) H/o EGD (4) History of dental surgery (5) S/P History Social History: The patient continues to smoke three quarters of a pack of cigarettes per day. She denies alcohol use. 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 Review Of Systems See above for pertinent positives & negatives. A total of 10 systems reviewed and were otherwise negative. Allergies Coded Allergies: Bupropion (Verified Allergy, Unknown, HIVES, 08/10/17) Iodine (Verified Allergy, Unknown, 08/10/17) Phentermine (Verified Allergy, Unknown, 08/10/17) Scallop (Unverified Allergy, Unknown, NO BLOOD PRESSURE/VOMITING, 08/10/17 ) NEAR EXPERIENCE. Medications Reported Home Medications Medications Dose Route/Sig Max Daily Dose Days Date Category Dose Instructions Ventolin Hfa (Albuterol) 60 Puffs/5400 Mcg Aers 2 Puffs INH QID PRN 08/04/17 Reported Medroxyprogesterone Aceta (Medroxyprogesterone Acetate (C) 150 Mg/Ml Inj 150 Mg IM Q3 MONTHS 08/04/17 Reported Cyanocobalamin 1,000 Mcg/Ml Inj 1,000 Mcg IM MONTHLY 08/04/17 Reported Lorazepam 0.5 Mg Tab 0.5 Mg PO Q8 PRN 08/04/17 Reported Metoprolol Succinate ER (Metoprolol Succinate) 25 Mg Tabcr 12.5 Mg PO QAM 08/04/17 Reported Digitek (Digoxin) 0.125 Mg Tab 0.0625 Mg PO QAM 08/04/17 Reported TAKE HALF A TABLET (0.0625 MG) DAILY Pantoprazole Sodium (Pantoprazole) 40 Mg Tab 40 Mg PO QAM 08/04/17 Reported TAKE THIS MEDICATION ONCE DAILY ONE HOUR BEFORE FIRST MEAL OF THE DAY Aspirin 81 Mg Tab 81 Mg PO QAM 11/13/15 Reported Zyrtec (Cetirizine HCl) 10 Mg Tab 10 Mg PO QAM 09/08/08 Reported Physical Exam Vital Signs (Last 8hrs): Last 8 Hrs Date Time Temp Pulse Resp B/P (MAP) Pulse Ox O2 Delivery O2 Flow Rate FiO2 08/17/17 08:29 36.9 48 20 96/68 (77) 93 Room Air 96.0 08/17/17 08:00 Room Air 08/17/17 07:35 37.1 65 20 102/65 97 Room Air 08/17/17 07:05 79 22 93 08/17/17 07:01 90/59 08/17/17 06:50 75 19 95 08/17/17 06:35 74 21 94 08/17/17 06:31 94/57 08/17/17 06:20 99 20 95 08/17/17 06:05 64 21 95 08/17/17 06:01 96/61 08/17/17 05:50 70 20 96 08/17/17 05:35 91 19 97 08/17/17 05:31 85/59 08/17/17 05:20 92 19 97 08/17/17 05:05 92 22 93 08/17/17 05:00 95/59 08/17/17 04:57 86 21 94 08/17/17 04:42 87 19 93 08/17/17 04:37 83 19 94 08/17/17 04:30 92/63 08/17/17 04:22 86 20 96 08/17/17 04:15 103/60 08/17/17 04:07 100 18 97 08/17/17 04:00 96/58 08/17/17 03:52 103 14 95 08/17/17 03:45 99/68 08/17/17 03:37 103 21 96 08/17/17 03:30 98/75 08/17/17 03:22 96 14 96 08/17/17 03:21 100 19 96 Room Air 08/17/17 03:17 94 14 99/69 97 08/17/17 03:16 99 08/17/17 03:12 116 26 96 08/17/17 03:07 166 20 98 08/17/17 03:02 173 24 98 Room Air 08/17/17 03:00 109/77 08/17/17 03:00 168 08/17/17 02:59 111/90 08/17/17 02:57 165 18 08/17/17 02:55 08/17/17 02:45 36.9 184 20 102/70 97 Room Air General Appearance: Alert and Oriented x3. NAD. Head: Normocephalic Atraumatic. Eyes: PERRLA, EOMI, conjunctiva and sclera clear Neck: Supple. No carotid bruits noted. No JVD. No HJD. Respiratory: Breath sounds clear to auscultation bilaterally. No w/r/r. Cardiovascular: Reg rate and rhythm. S1 and S2 noted. No murmurs, rubs, gallops. PMI non displace. Abdomen: Normal bowel sounds, soft nontender. no abdominal bruits. Extremities: No edema, no clubbing or cyanosis. distal pulses 2/4 bilaterally. Neuro: No focal deficits. Psychiatric: Normal affect. Data See above for pertinent positives & negatives. A total of 10 systems reviewed and were otherwise negative. EKG performed on arrival on 08/17/17 and reviewed independently revealed supraventricular tachycardia 165 bpm, with mild diffuse nonspecific ST abnormality but no kumar ST segment depression. Incomplete right bundle branch block morphology is noted. Repeat EKG performed 08/17/17 at 3:16 AM reveals sinus rhythm at 97 bpm with occasional PVCs. Assessment & Plan Impression: 46-year-old female 1. Recurrent symptomatic paroxysmal supraventricular tachycardia, terminated with IV adenosine 2. Bicuspid aortic valve, with moderate bicuspid aortic valve stenosis on echocardiogram January 2017 3. Frequent PVCs 4. Ongoing cigarette smoking 5. History of asthma 6. Superimposed upper respiratory tract infection. Plan: Continue patient's chronic dose of metoprolol succinate 12.5 mg twice a day. The patient has not been a tolerate higher doses in the past due to baseline bradycardia. Continue chronic dose of digoxin. As noted in my recent outpatient note, the patient had been seen in EP consultation by Dr Tacho rowell in April,. Electrophysiology study with radio frequency catheter ablation had been planned. The patient however had a lot of anxiety about the sedation protocol for the procedure. She did not think she would tolerate moderate sedation with Versed and fentanyl, and therefore arrangements were made for her to have the procedure under general anesthesia. Several days before the procedure however the patient called and canceled. She had felt well in the interim few months, but now has had for significant recent episodes of tachycardia, 3 of which prompted emergency room visits. At the present time, the patient is stable from a tachycardia standpoint for discharge. I asked her if she would like to reestablish with electrophysiology to once again revisit the idea of ablation, and she is still on the fence, and would like to think about things. I'm going to arrange outpatient follow-up with EP if she is interested. I offered to arrange a consultation with a alternative electrophysiology provider and she is going to think about this. Recommend evaluation by the hospitalist team for her respiratory tract complaints. His antibiotics are indicated, would avoid indications that prolong the QT interval such as a fluoroquinolone macrolide.
[2017-08-17 10:15] VITALS: BP 91/57; PULSE 84
--- NOTE | 2017-08-17 10:42 | Progress Note ---
Internal Med Progress Note Date of Service: Aug 17, 2017. Provider Documentation: SUBJECTIVE: Seen and examined at bedside States feeling tired but otherwise doing better Eager to get discharged Reports sinus congestion Denies chest pain, SOB, palpitations, nausea, vomiting, abd pain, dizziness No other complaints OBJECTIVE: Vital Signs-as noted below Physical Exam: General Appearance:Moderately built and nourished, no apparent distress Head: normocephalic, Atraumatic Eyes: normal inspection, EOMI, PERRL Neck: supple, Trachea midline Respiratory/Chest: Normal breath sounds, CTA Cardiovascular: S1, S2, No murmur Abdomen/GI:Soft, Non tender, Bowel sounds present Extremities/Musculoskelatal:normal inspection, no edema Neurologic/Psych:AAOX3, grossly no focal neurological deficits Skin: normal color, warm Lab data as noted below. ASSESSMENT & PLAN: Recurrent symptomatic paroxysmal SVT Currently in sinus S/P Adenosine Can not tolerate higher doses of BB in the past secondary to bradycardia. 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 Will start on Augmentin Continue home inhalers DVT Px: Lovenox SQ Code Status: Full Code Disposition: Plan to discharge home today Follow up with your primary care on 08/21/17 at 10:45am Follow up with Cardiology in 2 weeks as advised Follow up with your technical sales support specialist for Electrophysiology study with radio frequency catheter ablation as outpatient Seek immediate medical attention if your symptoms reoccur or worsen Vital Signs: Date Time Temp Pulse Resp B/P (MAP) Pulse Ox O2 Delivery O2 Flow Rate FiO2 08/17/17 10:15 84 91/57 (68) 08/17/17 10:15 84 08/17/17 08:29 36.9 48 20 96/68 (77) 93 Room Air 96.0 08/17/17 08:00 Room Air 08/17/17 07:35 37.1 65 20 102/65 97 Room Air 08/17/17 07:05 79 22 93 08/17/17 07:01 90/59 08/17/17 06:50 75 19 95 08/17/17 06:35 74 21 94 08/17/17 06:31 94/57 08/17/17 06:20 99 20 95 08/17/17 06:05 64 21 95 08/17/17 06:01 96/61 08/17/17 05:50 70 20 96 08/17/17 05:35 91 19 97 08/17/17 05:31 85/59 08/17/17 05:20 92 19 97 08/17/17 05:05 92 22 93 08/17/17 05:00 95/59 08/17/17 04:57 86 21 94 08/17/17 04:42 87 19 93 08/17/17 04:37 83 19 94 08/17/17 04:30 92/63 08/17/17 04:22 86 20 96 08/17/17 04:15 103/60 08/17/17 04:07 100 18 97 08/17/17 04:00 96/58 08/17/17 03:52 103 14 95 08/17/17 03:45 99/68 08/17/17 03:37 103 21 96 08/17/17 03:30 98/75 08/17/17 03:22 96 14 96 08/17/17 03:21 100 19 96 Room Air 08/17/17 03:17 94 14 99/69 97 08/17/17 03:16 99 08/17/17 03:12 116 26 96 08/17/17 03:07 166 20 98 08/17/17 03:02 173 24 98 Room Air 08/17/17 03:00 109/77 08/17/17 03:00 168 08/17/17 02:59 111/90 08/17/17 02:57 165 18 08/17/17 02:55 08/17/17 02:45 36.9 184 20 102/70 97 Room Air Lab Results: Results Past 24 Hours Test 08/17/17 02:55 08/17/17 07:56 Range/Units White Blood Count 10.12 4.8-10.8 K/uL Red Blood Count 5.20 4.2-5.4 M/uL Hemoglobin 16.0 12.0-16.0 g/dL Hematocrit 47.0 37-47 % Mean Corpuscular Volume 90.4 80-100 fL Mean Corpuscular Hemoglobin 30.8 25-34 pg Mean Corpuscular Hemoglobin Concent 34.0 32-36 g/dl Platelet Count 175 130-400 K/uL Mean Platelet Volume 10.8 7.4-10.4 fL Neutrophils (%) (Auto) 59.6 % Lymphocytes (%) (Auto) 31.6 % Monocytes (%) (Auto) 7.0 % Eosinophils (%) (Auto) 1.2 % Basophils (%) (Auto) 0.4 % Neutrophils # (Auto) 6.03 1.4-6.5 K/uL Lymphocytes # (Auto) 3.20 1.2-3.4 K/uL Monocytes # (Auto) 0.71 0.11-0.59 K/uL Eosinophils # (Auto) 0.12 0-0.5 K/uL Basophils # (Auto) 0.04 0-0.2 K/uL RDW Standard Deviation 45.0 36.4-46.3 fL RDW Coefficient of Variation 13.5 11.5-14.5 % Immature Granulocyte % (Auto) 0.2 % Immature Granulocyte # (Auto) 0.02 0.00-0.02 K/uL Prothrombin Time 10.4 9.0-12.0 SECONDS Prothromb Time International Ratio 1.0 0.9-1.1 Activated Partial Thromboplast Time 30.3 21.0-31.0 SECONDS Partial Thromboplastin Ratio 1.2 Sodium Level 140 136-145 mmol/L Potassium Level 3.5 3.5-5.1 mmol/L Chloride Level 107 98-107 mmol/L Carbon Dioxide Level 27 21-32 mmol/L Anion Gap 6.0 3-11 mmol/L Blood Urea Nitrogen 7 7-18 mg/dl Creatinine 0.80 0.60-1.20 mg/dl Est Creatinine Clear Calc Drug Dose 92.1 ml/min Estimated GFR () 101.8 Estimated GFR (Non- 87.8 BUN/Creatinine Ratio 8.3 10-20 Random Glucose 131 70-99 mg/dl Calcium Level 8.6 8.5-10.1 mg/dl Phosphorus Level 4.2 2.5-4.9 mg/dl Magnesium Level 1.9 1.8-2.4 mg/dl Total Bilirubin 0.4 0.2-1 mg/dl Direct Bilirubin < 0.1 0-0.2 mg/dl Aspartate Amino Transf (AST/SGOT) 13 15-37 U/L Alanine Aminotransferase (ALT/SGPT) 18 12-78 U/L Alkaline Phosphatase 69 45-117 U/L Troponin I < 0.015 < 0.015 0-0.045 ng/ml Total Protein 7.3 6.4-8.2 gm/dl Albumin 3.7 3.4-5.0 gm/dl Lipase 147 73-393 U/L Thyroid Stimulating Hormone (TSH) 4.820 0.300-4.500 uIu/ml Digoxin Level 0.3 0.8-2.0 ng/ml
[2017-08-17] MEDS ORDERED: AMOX875T PO (11:04)
--- NOTE | 2017-08-17 11:07 | Discharge Summary ---
Discharge Summary Date of Service Aug 17, 2017. Discharge Summary Admission Date: Aug 17, 2017 at 05:11 Discharge Date: Aug 17, 2017 Discharge Disposition: Home Principal Diagnosis: Recurrent symptomatic paroxysmal SVT Procedures: CXR: No active disease in the chest. Consultations: Cardiology Pending Studies/Follow-Up: Follow up with your primary care on 08/21/17 at 10:45am Follow up with Cardiology in 2 weeks as advised Follow up with your trade specialist for Electrophysiology study with radio frequency catheter ablation as outpatient Seek immediate medical attention if your symptoms reoccur or worsen Medication Reconciliation New Medications: Amoxicillin & Pot Clavulanate (Augmentin 875-125 mg) 1 Tab Tab 1 TAB PO BID for 7 Days, #14 TAB Continued Medications: Albuterol (Ventolin Hfa) 60 Puffs/5400 Mcg Aers 2 PUFFS INH QID PRN for SOB/Wheezing Aspirin (Aspirin) 81 Mg Tab 81 MG PO QAM Cetirizine (Zyrtec) 10 Mg Tab 10 MG PO QAM, 0 Refills Cyanocobalamin (Cyanocobalamin) 1,000 Mcg/Ml Inj 1000 MCG IM MONTHLY Digoxin (Digitek) 0.125 Mg Tab 0.0625 MG PO QAM TAKE HALF A TABLET (0.0625 MG) DAILY Lorazepam (Lorazepam) 0.5 Mg Tab 0.5 MG PO Q8 PRN for Palpitations or Anxiety Medroxyprogesterone Acetate (C (Medroxyprogesterone Aceta) 150 Mg/Ml Inj 150 MG IM Q3 MONTHS Metoprolol Succinate (Metoprolol Succinate ER) 25 Mg Tabcr 12.5 MG PO QAM Pantoprazole (Pantoprazole Sodium) 40 Mg Tab 40 MG PO QAM TAKE THIS MEDICATION ONCE DAILY ONE HOUR BEFORE FIRST MEAL OF THE DAY Admission Information HPI (per Admitting provider): CHIEF COMPLAINT: SVT. HISTORY OF PRESENT ILLNESS: Medical history significant for asthma, ongoing tobacco abuse, PSVT, bicuspid aortic valve. Recent confinement December 2015 for SVT. About 2 weeks ago, patient was seen at the Emergency Room for SVT related to possible dehydration. SVT spontaneously broke. Compliant with medications. Admits to some stress at home more than usual. The patient returned to the Emergency Room a week later for SVT, resolved after administration of adenosine at the Emergency Room. The patient left, did not want to stay for admission. Had a followup with her [facility] director of mobile marketing a few days ago. The patient evaluated by [facility] EPS last April 2017 for drug refractory SVT. She was felt to be a good candidate for catheter ablation. Schedule was about 2 months ago. The patient cancelled, said she felt well and hesitation about sedation. As per patient since last ER visit she has had some chest soreness. This morning, few hours ago patient woke up to go to the bathroom. Upon returning to bed she felt palpitations. No unusual chest pain or shortness of breath. At the Emergency Room, she was noted to be SVT, cardiac rate 180s, resolved after administration of adenosine. Yesterday she used inhaler 2 times secondary to some respiratory tract infection. A 2D echo from January 2017 showed congenital bicuspid aortic valve, moderate calcific aortic valve, moderately reduced aortic valve opening. No significant aortic regurgitation. LVH. Physical Exam (per Admitting): PHYSICAL EXAMINATION: VITAL SIGNS: Blood pressure was noted to be ____, pulse rate 184, later 96, RR 14, temperature 36.9, sats ____ on room air. GENERAL: Noted to be obese, anxious, no respiratory distress. SKIN: Normal color. Warm. HEAD, EYES, EARS, NOSE, AND THROAT: [place] palpebral conjunctivae. No ptosis. Dry oral mucosa. NECK: Short neck. No tenderness. LUNGS: Decreased breath sounds. HEART: Regular rate and rhythm. Systolic murmur. ABDOMEN: Soft, nontender. EXTREMITIES: No edema. No gross deformities. No tenderness. NEUROLOGIC EXAMINATION: No gross focality, coherent. Hospital Course Recurrent symptomatic paroxysmal SVT Currently in sinus S/P Adenosine Can not tolerate higher doses of BB in the past secondary to bradycardia. 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 Will start on Augmentin Continue home inhalers DVT Px: Lovenox SQ Code Status: Full Code Disposition: Plan to discharge home today Follow up with your primary care on 08/21/17 at 10:45am Follow up with Cardiology in 2 weeks as advised Follow up with your trade specialist for Electrophysiology study with radio frequency catheter ablation as outpatient Seek immediate medical attention if your symptoms reoccur or worsen Total time spent on discharge = This includes examination of the patient, discharge planning, medication reconciliation, and communication with other providers. Discharge Instructions Discharge Instructions Date of Service Aug 17, 2017. Admission Reason for Admission: SVT Discharge Discharge Diagnosis / Problem: Recurrent symptomatic paroxysmal SVT Discharge Goals Goal(s): Decrease discomfort, Improve function Activity Recommendations Activity Limitations: resume your previous activity Exercise/Sports Limitations: as tolerated . Instructions / Follow-Up Instructions / Follow-Up Follow up with your primary care on 08/21/17 at 10:45am Follow up with Cardiology in 2 weeks as advised Follow up with your trade specialist for Electrophysiology study with radio frequency catheter ablation as outpatient Seek immediate medical attention if your symptoms reoccur or worsen Current Hospital Diet Patient's current hospital diet: AHA Diet (Heart Healthy) Discharge Diet Recommended Diet: AHA Diet (Heart Healthy) Pending Studies Studies pending at discharge: no Medical Emergencies . Who to Call and When: Medical Emergencies: If at any time you feel your situation is an emergency, please call 911 immediately. . Non-Emergent Contact Non-Emergency issues call your: Primary Care Provider, Hose Mender Call Non-Emergent contact if: you have a fever, your pain is not controlled, your pain is worsening, your pain is unusual for you, your pain is concerning you, you have any medication questions Seek immediate medical attention if your symptoms reoccur or worsen . . "Provider Documentation" section prepared by Vipin Bassett. . VTE Core Measure Inpt VTE Proph given/why not?: Enoxaparin (Lovenox)SQ
[2017-08-17 11:30] VITALS: BP 91/57; PULSE 84; TEMP 36.9; O2SAT 93
== END 2017-08-17 12:29 | disposition home or self-care (01) ==
LOC: C.EDB 02:44 → C.2T 05:11 → ENRESERV 05:32
PROVIDERS: ADMIT Internal Medicine; ATTEND Internal Medicine
DX: I47.1 Supraventricular tachycardia (principal); Z79.82 Long term (current) use of aspirin; J45.909 Unspecified asthma, uncomplicated; F17.200 Nicotine dependence, unspecified, uncomplicated; Z98.890 Other specified postprocedural states; Z98.818 Other dental procedure status; Z82.49 Family history of ischemic heart disease and other diseases of the circulatory system

== ENCOUNTER 2017-12-22 14:19 | Emergency (ER) | payer BC ==
[~2017-12-22] VITALS: Ht 162.6 cm; Wt 88.0 kg
[~2017-12-22 14:19] MED LIST changes: +PANT40TA2 PO; -PRT/40 PO
[2017-12-22 14:32] VITALS: TEMP 37; Ht 162.6 cm; Wt 88.0 kg
[2017-12-22] MEDS ORDERED: METHYLPREDNISOLONE 125 MG VIAL IV STA (15:07)
[2017-12-22] MEDS ORDERED: METOCLOPRAMIDE HCL INJ 5 MG/ML 2 ML VIAL IV. STA (15:07)
[2017-12-22] MEDS ORDERED: DiphenhydrAMINE HCL 50 MG/ML VIAL IV STA (15:07)
--- NOTE | 2017-12-22 15:08 | EMERGENCY ROOM VISIT NOTE ---
History Report prepared by Zeny: Adrian Hinojosa Under the Supervision of: Dr. Jayant Mejia M.D. First contact with patient: 14:37 Chief Complaint: FLU LIKE SX Stated Complaint: FLU LIKE SX History of Present Illness The patient is a 47 year old white female with a past medical history of asthma , migraines who presents to the ED with a cc of a persistent illness that started 2 days ago. Positive sinus congestion, headache, difficulty breathing, productive cough. Negative abdominal pain. She states that she has been using her inhaler "way too much" recently. The patient notes that her asthma had been under control for the most part. She adds that she used to get headaches, but not recently, so this one is unusual. She notes that in the past only caffeine had helped her headaches, so she has drank a lot of caffeine recently. She states that she was seen by her family doctor, who was concerned about the effect of the caffeine on her heart. The patient notes no blood thinner use. She says that she been around people with influenza recently, and she did not get her flu shot this season. The patient is a smoker. Source of History: patient Onset: 2 days ago Position: other (global - illness) Timing: other (persistent) Associated Symptoms: + headache, + cough, + SOB, No abdominal pain Note: Associated symptoms: Sinus congestion. Review of Systems See HPI for pertinent positives and negatives. A total of ten systems were reviewed and were otherwise negative. Past Medical & Surgical Medical Problems: (1) Asthma (2) H/O migraine (3) H/o palpitations (4) H/o PVC's (5) Respiratory failure, acute (6) Tobacco use disorder Surgical Problems: (1) H/O arthroscopic knee surgery (2) H/O arthroscopy of shoulder (3) H/o EGD (4) History of dental surgery (5) S/P Family History Cardiac disorder FATHER Diabetes mellitus PGM AUNT FH: CAD (coronary artery disease) PGF PGM FH: breast cancer PATERNAL AUNT (age late 50s) FH: colon cancer UNCLE (age 65) Hypertension BROTHER HALF BROTHER Social History Smoking Status: Current Every Day Smoker Alcohol Use: occasionally Drug Use: none Marital Status: Housing Status: lives with family Current/Historical Medications Scheduled Aspirin (Aspirin), 81 MG PO QAM Cetirizine (Zyrtec), 10 MG PO QAM Cyanocobalamin (Cyanocobalamin), 1,000 MCG IM MONTHLY Medroxyprogesterone Acetate (C (Medroxyprogesterone Aceta), 150 MG IM Q3 MONTHS Metoprolol Succinate (Metoprolol Succinate ER), 12.5 MG PO QAM Pantoprazole (Pantoprazole Sodium), 40 MG PO QAM Scheduled PRN Acetaminophen (Tylenol), 1,000 MG PO UD PRN for Headache Acetaminophen Tab (Tylenol), 2-5 TABS PO for Headache Levalbuterol Tartrate (Levalbuterol Tartrate Hfa), 2 PUFF PO QID PRN for Wheezing Allergies Coded Allergies: Bupropion (Verified Allergy, Unknown, HIVES, 08/10/17) Iodine (Verified Allergy, Unknown, 08/10/17) Phentermine (Verified Allergy, Unknown, 08/10/17) Scallop (Verified Allergy, Unknown, NO BLOOD PRESSURE/VOMITING, 12/22/17) NEAR EXPERIENCE. Physical Exam Vital Signs Date Time Temp Pulse Resp B/P (MAP) Pulse Ox O2 Delivery O2 Flow Rate FiO2 12/22/17 18:31 82 16 110/61 93 12/22/17 16:24 92 20 101/73 98 Room Air 12/22/17 15:32 89 12/22/17 15:31 91 22 95 Room Air 12/22/17 14:32 37.0 88 16 126/82 98 Room Air Physical Exam GENERAL: Awake, alert, well-appearing, NAD HENT: Normocephalic, atraumatic. EYES: Normal conjunctiva. Sclera non-icteric. Mild photophobia. NECK: Supple. No nuchal rigidity. No signs of meningismus. FROM. RESPIRATORY: Diffuse inspiratory and expiratory wheezing throughout. CARDIAC: RRR, no MRG ABDOMEN: Soft, NTND, BS+ MSK: No chest wall TTP, no LE edema NEURO: CN 2-12 intact, 5/5 upper and lower extremity strength, no dysmetria, no drift, good finger to nose, no sensory deficits. SKIN: No rash or jaundice noted. Medical Decision & Procedures ER Provider Diagnostic Interpretation: X-ray: Per my interpretation, radiologist review. CHEST ONE VIEW PORTABLE CLINICAL HISTORY: Respiratory distress COMPARISON STUDY: 08/17/2017 FINDINGS: The heart is normal in size. There is no failure. There is subtle increased interstitial markings the right medial lung base. There are no pleural effusions.[ IMPRESSION: Mild interstitial thickening at the right medial lung base. This could be secondary to a focal bronchitis or early pneumonitis. Clinical and radiographic follow-up is recommended Electronically signed by: Benji Fuchs M.D. 12/22/2017 3:24 PM Dictated Date/Time: 12/22/2017 3:22 PM Laboratory Results 12/22/17 15:30 Red Blood Count 4.71, Mean Corpuscular Volume 85.4, Mean Corpuscular Hemoglobin 30.4, Mean Corpuscular Hemoglobin Concent 35.6, Mean Platelet Volume 9.9, Neutrophils (%) (Auto) 62.8, Lymphocytes (%) (Auto) 26.8, Monocytes (%) (Auto) 9.5, Eosinophils (%) (Auto) 0.7, Basophils (%) (Auto) 0.2, Neutrophils # (Auto) 2.76, Lymphocytes # (Auto) 1.18, Monocytes # (Auto) 0.42, Eosinophils # (Auto) 0.03, Basophils # (Auto) 0.01 12/22/17 15:30 Test 12/22/17 15:30 12/22/17 15:47 White Blood Count 4.40 K/uL (4.8-10.8) Red Blood Count 4.71 M/uL (4.2-5.4) Hemoglobin 14.3 g/dL (12.0-16.0) Hematocrit 40.2 % (37-47) Mean Corpuscular Volume 85.4 fL (80-100) Mean Corpuscular Hemoglobin 30.4 pg (25-34) Mean Corpuscular Hemoglobin Concent 35.6 g/dl (32-36) Platelet Count 95 K/uL (130-400) Mean Platelet Volume 9.9 fL (7.4-10.4) Neutrophils (%) (Auto) 62.8 % Lymphocytes (%) (Auto) 26.8 % Monocytes (%) (Auto) 9.5 % Eosinophils (%) (Auto) 0.7 % Basophils (%) (Auto) 0.2 % Neutrophils # (Auto) 2.76 K/uL (1.4-6.5) Lymphocytes # (Auto) 1.18 K/uL (1.2-3.4) Monocytes # (Auto) 0.42 K/uL (0.11-0.59) Eosinophils # (Auto) 0.03 K/uL (0-0.5) Basophils # (Auto) 0.01 K/uL (0-0.2) RDW Standard Deviation 42.7 fL (36.4-46.3) RDW Coefficient of Variation 13.8 % (11.5-14.5) Immature Granulocyte % (Auto) 0.0 % Immature Granulocyte # (Auto) 0.00 K/uL (0.00-0.02) Platelet Estimate DECREASED Prothrombin Time 10.3 SECONDS (9.0-12.0) Prothromb Time International Ratio 1.0 (0.9-1.1) Activated Partial Thromboplast Time 36.9 SECONDS (21.0-31.0) Partial Thromboplastin Ratio 1.4 Anion Gap 7.0 mmol/L (3-11) Est Creatinine Clear Calc Drug Dose 110.3 ml/min Estimated GFR () 120.5 Estimated GFR (Non- 103.9 BUN/Creatinine Ratio 8.3 (10-20) Calcium Level 8.6 mg/dl (8.5-10.1) Troponin I < 0.015 ng/ml (0-0.045) Pro-B-Type Natriuretic Peptide 276 pg/ml (0-450) Influenza Type A Antigen Neg for Influ A (NEG) Influenza Type B Antigen Neg for Influ B (NEG) Laboratory results reviewed by me Medications Administered Medications (Trade) Dose Ordered Sig/Sean Route Start Time Stop Time Status Last Admin Dose Admin Albuterol/ Ipratropium (Duoneb) 12 ml ONE ONCE INH 12/22/17 15:15 12/22/17 15:16 DC 12/22/17 15:31 12 ML Methylprednisolone Sodium Succinate (Solu-Medrol IV) 125 mg NOW STAT IV 12/22/17 15:07 12/22/17 15:11 DC 12/22/17 16:15 125 MG Diphenhydramine HCl (Benadryl Inj) 25 mg NOW STAT IV 12/22/17 15:07 12/22/17 15:11 DC 12/22/17 16:15 25 MG Metoclopramide HCl (Reglan Inj) 10 mg NOW STAT IV. 12/22/17 15:07 12/22/17 15:11 DC 12/22/17 16:15 10 MG ECG Per My Interpretation Indication: SOB/dyspnea Rate (beats per minute): 89 Rhythm: sinus rhythm Findings: PVC, other (ectopy noted, normal intervals, normal axis, no STS changes or TWI in the sinus rhythm) ED Course 1500: The patient was evaluated in room B9. A complete history and physical exam was performed. 1754: I reevaluated the patient and she is resting comfortably. Discussed results and discharge instructions: she verbalized understanding and agreement. The patient is ready for discharge. Medical Decision The patient is a 47 year old white female with a past medical history of asthma , migraines who presents to the ED with a cc of a persistent illness that started 2 days ago. Positive sinus congestion, headache, difficulty breathing, productive cough. Negative abdominal pain. Differential diagnosis: Etiologies such as migraine headache, meningitis, sinusitis, CO exposure, ICH, SAH, infection, tumor, headache, sinus thrombosis, arterial dissection, as well as others were entertained. Patient was seen and evaluated the bedside. Patient had been complaining some difficulty breathing, cough, and headache. Patient has a nonfocal neurologic exam. Patient did have some mild photophobia but no meningismus. Less likely meningitis. Patient was given a headache cocktail. Patient headache improved. Patient was noted to have some inspiratory next Tory wheezing. Patient likely has an asthma exacerbation or bronchitis given patient's smoking history. Patient was told she needs to continue to stop smoking. On reassessment the patient was feeling improved. Patient did not require further evaluation or treatment for her asthma for her headache. Patient was given steroids. No antibiotics at this time. Patient's blood work is fairly unremarkable. Patient did have some mild hypokalemia. This may be related to the patient's increased albuterol use. Patient was told she may supplement potassium with bananas or potatoes. Patient chest x-ray does show possible bronchitis. Given the short course of the nature no diagnosis of formal COPD no antibiotics at this time. Patient was discharged home. Medication Reconcilliation Current Medication List: was personally reviewed by me Blood Pressure Screening Patient's blood pressure: Normal blood pressure Impression Primary Impression: Asthma Additional Impressions: Headache Hypokalemia Encounter for smoking cessation counseling Scribe Attestation The scribe's documentation has been prepared under my direction and personally reviewed by me in its entirety. I confirm that the note above accurately reflects all work, treatment, procedures, and medical decision making performed by me. Departure Information Dispostion Home / Self-Care Referrals Olvin Cochran III, M.D. (PCP) Patient Instructions Asthma - [facility], ED Headache Migraine, ED Smoking Cessation, Hypokalemia Dc, My [facility] Additional Instructions Please return to the emergency department if you have worsening or recurrent symptoms not amenable to at-home treatment. Please call for a follow-up appointment with her primary care physician. Please take your medications as prescribed. If you have other concerns and/or complaints please feel free to also call your primary care physician's office or return the ED for further evaluation, management, and treatment. You were found to have an elevated blood pressure today (>120 sytolic or >90 diastolic). Per medicare guidelines, you need to follow up with this blood pressure screening with your Primary Care Physician (PCP). For a new PCP call [phone]. You received narcotic or benzodiazepene medication while in the emergency room today. This is an addictive medication that may cause drowziness as well as constipation. Do not drive, operate heavy machinery, or drink alcohol under the influence of this medication. You may take 600 mg Ibuprofen every 6 hours as needed for pain with food for no more than 2 consecutive days. You may take tylenol 1000 mg every 6 hours as needed for pain. You may take motrin and tylenol separately or at the same time. Take your medications as prescribed. Please take the steroids preferably in the morning with food. Please take your inhaler as follows: 2 puffs every 4 hours 1 day, 2 puffs every 6 hours 1 day, 1 puff every 4 hours 1 day, 1 puff every 6 hours 1 day. You have been examined and treated today on an emergency basis only. This is not a substitute for, or an effort to provide, complete comprehensive medical care. It is impossible to recognize and treat all injuries or illnesses in a single emergency department visit. It is therefore important that you follow up closely with [facility], your PCP, and/or your specialist(s). Call as soon as possible for an appointment. Thank you for your time and consideration. I look forward to speaking with you again soon. Please don't hesitate to call us if you have any questions. Problem Qualifiers Primary Impression: Asthma Asthma severity: mild Asthma persistence: intermittent Asthma complication type: with acute exacerbation Qualified Codes: J45.21 - Mild intermittent asthma with (acute) exacerbation Additional Impressions: Headache Headache type: unspecified Headache chronicity pattern: unspecified pattern Intractability: not intractable Qualified Codes: R51 - Headache
[2017-12-22] MEDS ORDERED: LEVA45AE PO (15:10)
[2017-12-22] MEDS ORDERED: ACET-1693 PO (15:14)
[2017-12-22] MEDS ORDERED: ACET-1256 PO (15:14)
[2017-12-22] MEDS ORDERED: ALBUT/IPRATROP 3MG/0.5MG NEB 3 ML VIAL INH ONE (15:15)
--- NOTE | 2017-12-22 15:26 | DIAGNOSTIC IMAGING REPORT ---
CHEST ONE VIEW PORTABLE CLINICAL HISTORY: Respiratory distress COMPARISON STUDY: 08/17/2017 FINDINGS: The heart is normal in size. There is no failure. There is subtle increased interstitial markings the right medial lung base. There are no pleural effusions.[ IMPRESSION: Mild interstitial thickening at the right medial lung base. This could be secondary to a focal bronchitis or early pneumonitis. Clinical and radiographic follow-up is recommended Electronically signed by: Benji Fuchs M.D. 12/22/2017 3:24 PM Dictated Date/Time: 12/22/2017 3:22 PM
[2017-12-22 15:31] VITALS: PULSE 91; O2SAT 95
[2017-12-22 16:02] LABS: PTT PATIENT 36.9 SECONDS (21.0-31.0)
[2017-12-22 16:09] LABS: BLOOD UREA NITROGEN 6 mg/dl (7-18); CALCIUM 8.6 mg/dl (8.5-10.1); CARBON DIOXIDE 26 mmol/L (21-32); CREATININE 0.67 mg/dl (0.60-1.20); GLUCOSE 110 mg/dl (70-99); POTASSIUM 3.4 mmol/L (3.5-5.1); SODIUM 133 mmol/L (136-145)
[2017-12-22 16:11] LABS: BASO % 0.2 %; BASO ABS # 0.01 K/uL (0-0.2); EOS % 0.7 %; EOS ABS # 0.03 K/uL (0-0.5); HEMATOCRIT 40.2 % (37-47); HEMOGLOBIN 14.3 g/dL (12.0-16.0); LYMPH % 26.8 %; LYMPH ABS # 1.18 K/uL (1.2-3.4); MEAN CELL VOLUME 85.4 fL (80-100); MEAN CORPUSCULAR HEMOGLOBIN 30.4 pg (25-34); MEAN CORPUSCULAR HGB CONC 35.6 g/dl (32-36); MEAN PLATELET VOLUME 9.9 fL (7.4-10.4); MONO % 9.5 %; MONO ABS # 0.42 K/uL (0.11-0.59); NEUT % 62.8 %; NEUT ABS # 2.76 K/uL (1.4-6.5); PLATELET COUNT 95 K/uL (130-400); RED CELL DISTRIBUTION WIDTH CV 13.8 % (11.5-14.5); RED CELL DISTRIBUTION WIDTH SD 42.7 fL (36.4-46.3)
[2017-12-22 16:36] LABS: INFLUENZA B ANTIGEN Neg for Influ B (NEG)
[2017-12-22] MEDS ORDERED: PRED50TA PO (18:15)
[2017-12-22 18:31] VITALS: BP 110/61; PULSE 82; O2SAT 93
--- NOTE | 2017-12-25 16:27 | EDITING REQUIRED CODING QUERY ---
CODING QUERY To promote full compliance with coding requirements relating to patient care, provider participation is requested in all cases of household appliances service technician uncertainty. Please assist us with the question(s) below: Coding Question(s): In the "Medical Decision" section of the note, documentation states the patient has a history of smoking. Also under the impression there is a diagnosis listed for "Encounter for smoking cessation counseling". But under the "Social History" section, it says the patient was never a smoker. Can you please clarify the documentation? Physician's Response(s): Thank you Orly Rangel Principal Diagnosis: "_that condition established after study, to be chiefly responsible for occasioning the admission of the patient to the hospital for care." Co-Existing Principal Diagnosis: "_when two or more diagnoses equally meet the criteria for principal diagnosis as determined by the circumstances of admission, diagnostic work up, and/or therapy provided, and the Alphabetic Index, Tabular List, or another coding guideline does not provide sequencing direction, any one of the diagnoses may be sequenced first." "When the physician has documented what appears to be a current diagnosis in the body of the record, but has not included the diagnosis in the final diagnostic statement, the physician should be asked whether the diagnosis should be added." (Source [facility] 2 QTR90. p3-4)
== END 2017-12-22 18:32 | disposition home or self-care (01) ==
LOC: C.EDB 14:21
DX: J45.21 Mild intermittent asthma with (acute) exacerbation (principal); R51 Headache; E87.6 Hypokalemia; F17.200 Nicotine dependence, unspecified, uncomplicated; Z79.82 Long term (current) use of aspirin; Z88.8 Allergy status to other drugs, medicaments and biological substances; Z91.041 Radiographic dye allergy status; Z91.013 Allergy to seafood; Z82.49 Family history of ischemic heart disease and other diseases of the circulatory system; Z83.3 Family history of diabetes mellitus; Z80.3 Family history of malignant neoplasm of breast; Z80.0 Family history of malignant neoplasm of digestive organs